=== PATIENT | male | born 1960 | race Caucasian/White ===

== ENCOUNTER 2016-06-22 11:58 | Observation (INO) | payer OTHER ==
--- NOTE | ~2016-06-22 | HP ---
History And Physical [place] [address] [facility] [place]. [address] NAME: AB GASCA JR : 64 STATUS : ADM Glendy PAT#: [id number] AGE: 56 ADM/REG DATE : 06/22/16 MR#: [id number] REPORT SERV DATE: 06/22/16 DICTATED BY: ESCOBAR GALLO DATE: 06/22/16 REPORT STATUS : Draft TRANSCRIBED BY: MODJohnny DATE: 06/22/16 DATE OF ADMISSION: 06/22/2016 CHILD CARE SPECIALIST: None. Last drapery estimator was in 2014 and he currently does not have a CT drapery estimator per patient report. CHIEF COMPLAINT: Chest pain and shortness of breath along with lightheadedness. HISTORY OF PRESENT ILLNESS: This is a pleasant, 56-year-old, white male with a history of coronary artery disease with a history of cardiac arrest during catheterization arteriogram with subsequent emergent CABG x3 in 2010 with subsequent PCIs x2 in 02/2015. He also has cardiac risk factors of diabetes, hypertension, hyperlipidemia, and obesity. He presents to the emergency department today with left-sided chest pain. He reports he has shortness of breath, and reports that this is intermittent and is chronic and not progressing. He does also have lightheadedness. He reports his lightheadedness started this morning and that he felt dizzy and nauseous as well. Nausea has been going on for two days. He reports this is similar to prior to his catheterization and emergent CABG. He reports blood pressure during episodes of dizziness, lightheadedness, and nausea was normal at 118/66 and 117/65. He also mentions having pain in his right calf and tingling to his toes for one to one and half months. He reports he also had tingling to his extremities prior to catheterization and CABG. He notes that he also has swelling of his right calf more than his left calf and that this is unusual for him. He does have right calf pain on examination. Currently, he denies any chest pain, pressure, shortness of breath, nausea or vomiting. He does not currently have any complaints. He has no syncope, although he does have those near syncopal symptoms as we discussed. He denies any edema or orthopnea. PAST MEDICAL HISTORY: 1. Coronary artery disease with emergent CABG after cardiac arrest during catheterization arteriogram in 01/2011. Subsequently underwent CABG x3 in 01/2011. Also subsequently underwent PCI x2, 02/2015. No details available. 2. Non insulin-dependent diabetes mellitus. 3. Hypertension. 4. COPD. 5. Hyperlipidemia. 6. Obesity. 7. Chronic pain syndrome of back, neck, and head. 8. Thyroid nodule that has resolved. 9. Obstructive sleep apnea, compliant with CPAP. 10.GI bleed in 12/2015 without recurrence. 11.Arthritis. PAST SURGICAL HISTORY: 1. CAD, status post CABG x3 in [place], [place] at the [facility]. 2. Lower back surgery. 3. Bilateral shoulder surgery. History And Physical [address] [address] NAME: AB GASCA : 64 STATUS : ADM Glendy PAT#: [id number] AGE: 56 ADM/REG DATE : 06/22/16 MR#: [id number] REPORT SERV DATE: 06/22/16 DICTATED BY: ESCOBAR GALLO DATE: 06/22/16 REPORT STATUS : Draft TRANSCRIBED BY: LEEANNA DATE: 06/22/16 SOCIAL HISTORY: , with six children. Has smoked one pack per day x30 years and continues to smoke. Former alcohol use. No illicit drug use. FAMILY HISTORY: Noncontributory for CAD. ALLERGIES: MORPHINE, REACTION ITCHING. HOME MEDICATION: List reviewed and is as follows: 1. Albuterol inhalation four times per day as needed for shortness of breath and wheezing. 2. Ammonium lactate one application topically twice a day as needed for skin disorder. 3. Artificial tears one to two drops twice a day p.r.n. dry eyes. 4. Aspirin enteric coated 81 mg p.o. every morning. 5. Symbicort 160/4.5 mg two puffs inhaled twice per day as needed for shortness of breath and wheezing. 6. Coreg 6.25 mg p.o. twice per day. 7. Vitamin D3 2000 units p.o. every morning. 8. Gabapentin 800 mg p.o. three times per day. 9. Glucotrol 10 mg p.o. twice per day. 10.Hydrocortisone cream twice a day p.r.n. hemorrhoids. 11.Lisinopril 5 mg p.o. every morning. 12.Thera-Gesic one application topically three times per day p.r.n. affected areas. 13.Metformin 1000 mg p.o. with breakfast and supper. 14.Robaxin a 1000 mg p.o. at bedtime. 15.Nitroglycerin 0.4 mg sublingual p.r.n. chest pain. 16.Oxycodone 5 mg p.o. three times daily scheduled for pain. 17.Pravastatin 40 mg p.o. at bedtime. 18.Sennosides/docusate one tablet p.o. twice per day. 19.Spiriva two caps in halate daily p.r.n. shortness of breath, wheezing. 20.Topamax 25 mg p.o. at bedtime. 21.Capsaicin one application topically twice per day as needed p.r.n. muscle pain. PHYSICAL EXAMINATION: VITAL SIGNS: Oxygen saturation 99% on room air, pulse is 51, respiratory rate 18, blood pressure 124/58. GENERAL: Well developed, well nourished, in no apparent distress. HEENT: Head normocephalic. No xanthelasma. Sclera clear, anicteric. Moist mucous membranes without pallor. No lymphadenopathy. No deficits noted. NECK: Trachea midline. Supple. No thyromegaly, JVD, or bruits. RESPIRATORY: Unlabored respirations. Breath sounds clear bilaterally to posterior auscultation. No wheezes, rhonchi or crackles. CARDIOVASCULAR: Regular rhythm with a mildly bradycardic rate. No murmur, rub, or gallop appreciated. No chest wall tenderness to palpation. ABDOMEN: Soft, nontender, and nondistended. Active bowel sounds auscultated x4 quadrants. No organomegaly and no masses. No aortic bruit. EXTREMITIES: DP/PT and radial pulses 2+ bilaterally. No clubbing or cyanosis. The patient does have right calf pain and tenderness, right lower extremity mildly more the left lower extremity and this is abnormal for him. There was no edema. History And Physical [address] [place]. [address] NAME: AB GASCA : 64 STATUS : ADM Glendy PAT#: [id number] AGE: 56 ADM/REG DATE : 06/22/16 MR#: [id number] REPORT SERV DATE: 06/22/16 DICTATED BY: ESCOBAR GALLO DATE: 06/22/16 REPORT STATUS : Draft TRANSCRIBED BY: MODL DATE: 06/22/16 SKIN: Warm, dry, intact. No rash. Normal turgor. MUSCULOSKELETAL: Moves all extremities in bed without difficulty. NEURO/PSYCH: Alert and oriented x3 with no acute distress. Affect appropriate to current situation. LABORATORY DATA: 1. BMP: Sodium 141, potassium 4.0, creatinine 0.79, glucose 118, magnesium 2.2. 2. CBC: White blood cell count 8.4, hemoglobin 13.1, hematocrit 37.7, platelets 264. Troponin less than 0.02 at 12:38. STUDIES: 1. Chest x-ray, personally interpreted 06/22/2016: CABG markers with sternotomy hardware noted. Otherwise lungs are clear. 2. EKG, personally interpreted 06/22/2016: Sinus rhythm with first-degree AV block, with nonspecific T-wave inversion noted in lead V1. 3. Telemetry: Sinus bradycardia 47 to 50s. ASSESSMENT/PLAN: 1. Precordial chest pain. Initial troponin was negative. EKG with no acute ischemic changes. No chest pain now. The patient has quite significant risk factors including well known history of premature coronary artery disease, status post CABG with cardiac arrest and PCI x2 in 02/2015 along with risk factors of diabetes, hypertension, hyperlipidemia, obesity, and ongoing tobacco abuse. We will plan a nuclear stress test in the form of vasodilator stress test tomorrow morning if his cardiac enzymes are benign and EKGs remain benign. The patient reports due to chronic pain, he is unable to ambulate and therefore, we will plan a vasodilator modality. The patient will require a drapery estimator and he is a CT patient. Therefore, we will consult residential case manager to assist us in having the CT establish him with a drapery estimator. He will require a followup in one month. 2. Bradycardia. We will hold AV marck blocking agents tonight. He is on Coreg 6.25 mg p.o. b.i.d. Tomorrow, we will initiate a lower dosage of 3.125 mg p.o. twice per day. He will require followup with Cardiology after discharge. It is unclear whether the bradycardia is symptomatic as he does feel lightheaded and it is possibly related to bradycardia versus multiple other etiologies. 3. Right calf pain with tingling to toes and right calf swelling. We will order bilateral lower extremity ultrasound to rule out DVT due to these symptoms. We will also check a D-dimer. 4. Dyspnea. This possibly is related to chronic obstructive pulmonary disease. However, we will check a D-dimer. Please note, his chest x-ray is clear. There is no hypoxia at this present time. He has no evidence of a chronic obstructive pulmonary disease exacerbation. 5. Obstructive sleep apnea. We will encourage the patient to continue wear CPAP while here. 6. Non-insulin diabetes mellitus type 2. We will institute sliding scale insulin when while here. 7. Hyperlipidemia. The patient is only on pravastatin therapy. We will check a lipid panel and we will institute a high-intensity statin per guidelines for history of History And Physical [address] [address] NAME: AB GASCA JR : 64 STATUS : ADM Glendy PAT#: [id number] AGE: 56 ADM/REG DATE : 06/22/16 MR#: [id number] REPORT SERV DATE: 06/22/16 DICTATED BY: ESCOBAR GALLO DATE: 06/22/16 REPORT STATUS : Draft TRANSCRIBED BY: LEEANNA DATE: 06/22/16 coronary artery disease. 8. Hypertension. Blood pressure is well controlled at this time, and we will continue current medications other than changes to the carvedilol as previously mentioned. 9. History of gastrointestinal bleed, 12/2015. The patient denies any recurrence of gastrointestinal bleed. H and H are 13.1 and 37.7. The patient was also seen by rounding drapery estimator for [facility], Dr. Suellen Walsh. MICAH/LEEANNA Escobar Gallo NP / [id number] CC: Jeb Hussein M.D.
[~2016-06-22 11:58] MED LIST: AMLACTIN121 TOP; ANALPRAM-HC1 CRE PR; ASAB PO; BRILINTA90 MG PO; CAPSAICIN 0.075% TOP; COREG6 PO; GLUCOPHAGE1000 MG PO; GLUCOTRO10 PO; LIDOCAINE 4% CREAM TOP; MENTHOL/SALICYLATE TOP; METHOC500B PO; NEUR800 PO; NITROSTAT0.4 MG SL; OXYCOD PO; PLAVIX PO; PRAVACHOL40 MG PO; PRIN5 PO; PROVHFA INH; SENTAB PO; SPIRIVA INH; SYMBICORT 160/41 INH INH; TOPAMAX50 MG PO; VITAMIN D31000 UNIT PO
[2016-06-22 12:46] LABS: BASOPHILS 0.8 %; BASOPHILS ABSOLUTE 0.07 10/3/uL (0.0-0.16); EOSINOPHILS 5.6 %; EOSINOPHILS ABSOLUTE 0.47 10/3/uL (0.0-0.53); HEMATOCRIT 37.7 % (40.0-51.0); HEMOGLOBIN 13.1 g/dL (13.6-17.8); IMMATURE GRANULOCYTES 0.2 %; IMMATURE GRANULOCYTES ABSOLUTE 0.02 10/3/uL (0.0-0.11); LYMPHOCYTES 37.6 %; LYMPHOCYTES ABSOLUTE 3.17 10/3/uL (0.67-4.30); MEAN CORPUS HGB CONC 34.7 g/dL (32.0-36.0); MEAN CORPUSCULAR HEMOGLOB 31.4 pg (26.0-34.0); MEAN CORPUSCULAR VOLUME 90.4 fL (80-100); MEAN PLATELET VOLUME 8.7 fL (9.2-13.0); MONOCYTES 8.2 %; MONOCYTES ABSOLUTE 0.69 10/3/uL (0.21-1.20); NEUTROPHILS 47.6 %; PLATELET COUNT 264 10/3/uL (150-400); RBC DISTRIBUTION WIDTH 13.2 % (12.0-16.0); RED CELL COUNT 4.17 10/6/uL (4.7-6.1); WHITE BLOOD CELLS 8.4 10/3/uL (4.5-10.5)
[2016-06-22 12:47] LABS: ER CBC TAT 0 Hrs 03 Mins; MANUAL DIFF NO %
[2016-06-22 12:53] LABS: PARTIAL THROMBO TIME 26.4 SEC (22.5-37.2); PROTIME (NOT ORD) 12.7 SEC (12.0-14.5)
[2016-06-22 13:03] LABS: BUN (BLOOD UREA NITROGEN) 11 MG/DL (6-23); CALCIUM, SERUM 8.5 MG/DL (8.5-10.4); CHEST PAIN PROFILE TAT 0 Hrs 20 Mins; CHLORIDE, SERUM 109 MMOL/L (96-112); CO2 (CARBON DIOXIDE) 27 MMOL/L (24-34); CREATININE 0.79 MG/DL (0.70-1.30); GFR AFRICAN AMERICAN 118 ML/MIN (>=60); GFR NON AFRICAN AMERICAN 102 ML/MIN (>=60); SODIUM, SERUM 141 MMOL/L (135-148); TROPONIN I <0.02 NG/ML (<0.05)
[2016-06-22 13:04] LABS: GLUCOSE, SERUM 118 MG/DL (60-99)
[2016-06-22] MEDS ORDERED: LAC-HYDRIN TOP (13:56)
[2016-06-22] MEDS ORDERED: REFRESH OPH SO0.3 ML OPH (13:58)
[2016-06-22] MEDS ORDERED: SYMBICORT 160/41 INH INH (13:58)
[2016-06-22] MEDS ORDERED: COREG6 PO (13:59)
[2016-06-22] MEDS ORDERED: VITAMIN D31000 UNIT PO (14:00)
[2016-06-22] MEDS ORDERED: NEUR800 PO (14:00)
[2016-06-22] MEDS ORDERED: GLUCOTRO10 PO (14:00)
[2016-06-22] MEDS ORDERED: PRIN5 PO (14:01)
[2016-06-22] MEDS ORDERED: THERA-GESI1 TOP (14:02)
[2016-06-22] MEDS ORDERED: GLUCOPHAGE1000 MG PO (14:02)
[2016-06-22] MEDS ORDERED: NITROSTAT0.4 MG SL (14:03)
[2016-06-22] MEDS ORDERED: METHOC500B PO (14:03)
[2016-06-22] MEDS ORDERED: OXYCOD PO (14:04)
[2016-06-22] MEDS ORDERED: PRAVACHOL40 MG PO (14:04)
[2016-06-22] MEDS ORDERED: PERI-COLACE1 TAB PO (14:05)
[2016-06-22] MEDS ORDERED: SPIRIVA INH (14:05)
[2016-06-22] MEDS ORDERED: TOPAMAX25 PO (14:06)
[2016-06-22] MEDS ORDERED: ALBUTEROL0.083 % INH (14:13)
[2016-06-22] MEDS ORDERED: HALF81 PO (14:13)
[2016-06-22] MEDS ORDERED: CAPSAICIN 0.075% TOP (14:15)
[2016-06-22] MEDS ORDERED: PROCTOCREAM PR (14:16)
[2016-06-23 04:34] LABS: HDL CHOLESTEROL 32 MG/DL (> 39); TROPONIN I <0.02 NG/ML (<0.05)
[2016-06-23 04:42] LABS: CHOL/HDL RATIO(NOT ORDER) 4.2 (0-5); CHOLESTEROL 133 MG/DL (< 200); LDL CHOLESTEROL 44 MG/DL (< 130); NON-HDL CHOLESTEROL 101 MG/DL (< 160); TRIGLYCERIDE 287 MG/DL (< 150)
[2016-06-23] MEDS ORDERED: COREG3 PO (17:06)
[2016-06-23] MEDS ORDERED: LIPITOR40 PO (17:10)
[2016-06-23] MEDS ORDERED: IMDUR30 PO (17:11)
== END 2016-06-23 17:38 | disposition home or self-care (01) ==
LOC: ER 11:58 → CDU1 18:16 → CDU2 19:34
PROVIDERS: Emergency Medicine; Nurse Practitioner Family
DX: R07.2 Precordial pain (principal); R00.1 Bradycardia, unspecified; I25.10 Atherosclerotic heart disease of native coronary artery without angina pectoris; E11.9 Type 2 diabetes mellitus without complications; I10 Essential (primary) hypertension; J44.9 Chronic obstructive pulmonary disease, unspecified; E78.5 Hyperlipidemia, unspecified; G47.33 Obstructive sleep apnea (adult) (pediatric); M19.90 Unspecified osteoarthritis, unspecified site; Z99.81 Dependence on supplemental oxygen; F17.210 Nicotine dependence, cigarettes, uncomplicated; Z88.5 Allergy status to narcotic agent; Z79.82 Long term (current) use of aspirin; Z95.1 Presence of aortocoronary bypass graft; Z79.899 Other long term (current) drug therapy
CPT/HCPCS: 71010; 71275; 78452; 80048; 80061; 82962; 83735; 84484; 85025; 85379; 85610; 85730; 93005; 93017; 93970; 94640; 96374; 99285; A9270-GY; A9502; G0378; Q9967